=== PATIENT | female | born 1985 | race Caucasian/White ===

== ENCOUNTER 2024-10-02 21:19 | Observation (INO) | payer OTHER, SELFPAY ==
[2024-10-02 15:19] VITALS: BP 117/71
[2024-10-02 15:41] LABS: % Basophils 0.5 % (0-2); % Eosinophils 0.7 % (0-6); % Immature Granulocytes 1.8 % (0-0.5); % Lymphocytes 7.9 % (20.5-51.1); % Monocytes 5.3 % (1.7-9.3); % Neutrophils 83.8 % (42.2-75.2); Absolute Basophils 0.1 10^3/uL (0-0.2); Absolute Eosinophils 0.1 10^3/uL (0-0.7); Absolute Immature Granulocytes 0.3 10^3/uL (0-0.05); Absolute Lymphocytes 1.2 10^3/uL (1.2-3.4); Absolute Monocytes 0.8 10^3/uL (0.1-0.6); Absolute Neutrophils 12.8 10^3/uL (1.4-6.5); Hematocrit 38.1 % (37.0-47.0); Hemoglobin 13.1 g/dL (12.0-16.0); Mean Corp Hgb Conc. 34.4 g/dL (33.0-37.0); Mean Corpuscular Hgb 30.8 pg (27.0-31.0); Mean Corpuscular Volume 89.6 fL (81.0-99.0); Mean Platelet Volume 11.7 fL (7.4-10.4); Nucleated Red Blood Cells % 0 %; Platelet Count 271 10^3/uL (130-400); Red Blood Cell Count 4.25 10^6/uL (4.20-5.40); Red Cell Dist. Width 12.3 % (11.5-14.5); White Blood Cell Count 15.3 10^3/uL (4.8-10.8)
[2024-10-02 15:54] LABS: HCG, Serum Qualitative Screen Negative
[2024-10-02 15:57] LABS: ALT (SGPT) 14 U/L (0-35); AST (SGOT) 19 U/L (14-36); Albumin 3.9 g/dl (3.5-5.0); Alkaline Phosphatase 66 U/L (38-126); Blood Urea Nitrogen 11 mg/dl (7-17); Calcium 9.4 mg/dl (8.4-10.2); Carbon Dioxide 27 mmol/L (22-30); Chloride 105 mmol/L (98-107); Glucose 111 mg/dl (70-99); Lipase 131 U/L (23-300); Potassium 4.4 mmol/L (3.5-5.1); Sodium 140 mmol/L (135-145); Total Bilirubin 0.6 mg/dl (0.2-1.3); Total Protein 6.6 g/dl (6.3-8.2); eGFR > 60.00
[2024-10-02 16:34] VITALS: BMI 22.0
--- NOTE | 2024-10-02 16:57 | ED.GENMED ---
History of Present Illness
General
Chief Complaint: Abdominal Pain
Source: patient
Time Seen by Provider: 10/02/24 16:46
History of Present Illness
History of Present Illness:
39-year-old female presents to the emergency room complaining of abdominal pain. Patient began having abdominal pain at about 4:30 in the morning. It woke her from sleep. The pain seems to have persisted and perhaps even worsened. Pain is worse
with movement. Nothing seems to make it better. She did not take any taxx-mjy-[id number] medications for the pain. She denies having any previous abdominal surgeries. She states her last menstrual period was 2 years ago. She has taken medication
to suppress her menstrual period. Patient denies any associated nausea or vomiting.
Phy Exam
Physical Exam
Physical Exam:
General: Awake, Alert, Oriented X3. No acute distress.
Vitals: unremarkable
Head: Atraumatic
Eyes: Pupils equal, EOMI
Throat: Airway intact, no exudates
Neck: Trachea midline
Lungs: Clear and equal b/l
Heart: Regular rate, no murmurs
Abd: Soft, tender palpation right lower quadrant, No pulsatile mass
Back: No CVA tenderness to percussion
Neuro: Nonfocal
Skin: Warm, dry, no rash
Extremities: pulses equal b/l, no edema
Course
Orders/Labs/Results
Orders:
Orders
10/02/24 15:23
Test Result ONCE
10/02/24 15:27
Complete Blood Count/With Diff Urgent
Comprehensive Metabolic Panel Urgent
HCG, Serum Qualitative Screen Urgent
Lipase Urgent
10/02/24 16:56
CT Abd/pel W Iv And Oral Contr Urgent
Comment:
Reason For Exam: rlq abd pain
0.9% Sodium Chloride 1000 ml [Nss] 1,000 ml IV BOLUS
Iohexol [Omnipaque] See Protocol PO NOW STA
Ketorolac [Toradol] 15 mg IV NOW STA
10/02/24 20:37
Piperacillin/Tazo 4.5 Gram [Zosyn] 4.5 gram in 100 ml IV NOW
10/02/24 20:57
Admit/Transfer Patient As Directed
Co-Sign Provider:
Level of Care: Observation services
Assign to:: Medical/Surgical
Physician / Group: Arsh/General surgery
Diagnosis: Acute appendicitis
10/02/24 20:58
Code Status As Directed
Resuscitation Status: Full Code
PRN Pain Medication Management As Directed
May give lesser potent ordered pain med per pt: Yes
preference::
Protocol:: Medication orders for pain may be administered in a
manner that supports deferring to patient preference
when the pt is:
- Requesting an ordered lesser potent pain medication.
Least to most potent pain medications are defined
as: acetaminophen < NSAID < tramadol < opioids
(morphine, oxycodone, hydromorphone).
- Requesting a lesser dose of the same medication IF
ORDERED.
- Requesting a less intrusive route of administration
if both routes are prescribed by the provider (PO <
IV).
10/02/24 22:00
Flush (0.9% Sodium Chloride) [Flush (Nss)] See Dose Instructions IV PER PROTOCOL
10/02/24 22:39
0.9% Sodium Chloride 1000 ml [Nss] 1,000 ml IV 60 mls/hr
Morphine Sulfate 4 mg IV Q2HPRN PRN
Ondansetron Injectable [Zofran] 4 mg IV Q6HPRN PRN
10/02/24 22:39
Activity As Directed
Activity Level: Ambulate
Anti-embolism (NATASHA) Hose As Directed
Type: Thigh high
Intake/ Output As Directed
Frequency: Per unit guidelines
Pneumatic Compression Sleeves As Directed
Type: Thigh high
Vital Signs As Directed
Frequency: Per unit guidelines
DX Deep Vein Thrombosis Video Routine
10/03/24 03:00
Piperacillin/Tazo 3.375 Gram [Zosyn] 3.375 gram in 50 ml IV Q6H
10/03/24 Breakfast
NPO
Allow oral meds: No
Allow clear liquids: No
Abnormal Lab Results
10/02/24
15:27
WBC 15.3 H 10^3/uL
(4.8-10.8)
MPV 11.7 H fL
(7.4-10.4)
Abs Immat Gran (auto) 0.3 H 10^3/uL
(0-0.05)
Absolute Neuts (auto) 12.8 H 10^3/uL
(1.4-6.5)
Absolute Monos (auto) 0.8 H 10^3/uL
(0.1-0.6)
Immature Gran % 1.8 H %
(0-0.5)
Neutrophils % 83.8 H %
(42.2-75.2)
Lymphocytes % 7.9 L %
(20.5-51.1)
Glucose 111 H mg/dl
(70-99)
10/02/24 15:27
10/02/24 15:27
Vital Signs
Initial and Last Documented VS:
Initial Vital Signs
Temp Pulse Resp BP Pulse Ox
98.4 F 90 16 117/71 97
10/02/24 15:19 10/02/24 15:19 10/02/24 15:19 10/02/24 15:19 10/02/24 15:19
Last Documented Vital Signs
Temp Pulse Resp BP Pulse Ox
98.8 F 85 16 113/71 100
10/02/24 22:43 10/02/24 22:43 10/02/24 22:43 10/02/24 22:43 10/02/24 22:43
MDM/Problems Addressed
Differential Diagnosis Includes:
Appendicitis, ovarian cyst, hemorrhagic cyst, ectopic
MDM/Problems Addressed:
Patient presents with fairly sudden onset of right lower quad abdominal pain at 430. She is tender palpation of the right lower quadrant. White count is elevated 15.3. Rest of her labs are unremarkable. CT of the abdomen/pelvis performed which
shows the patient has acute appendicitis which appears to be uncomplicated. Case discussed with Dr. Bee who is on-call for general surgery. [facility] and plans for [facility] tomorrow morning. Patient will
remain NPO.
*Radiology
Radiology exam reviewed: radiology read reviewed
*Pulse Oximetry
Patient hypoxic: no
*Critical Care Note
Total Time (30-74mins, 75-104mins- exclusive of procedures): Not Applicable
ED Attending Note
-
Portions of this chart may have been created with voice recognition software.� Occasional wrong word or��sound alike� substitutions may have occurred due to the inherent limitations of voice recognition software.
Discharge Plan
Departure
Patient Disposition: Admit
Date of Disposition: 10/02/24
Time of Disposition: 20:39
Admit to: Med/Surg
Presentation/result/management discussed w/ accepting MD/DO: Hospitalist
Condition: Fair
Discharge Problem:
Abdominal pain, acute, Acute appendicitis
Interventions
Interventions:
*Risk Screen - Suicide Last Done: 10/02/24 15:19
*General Assessment Last Done: 10/02/24 15:19
*Neglect/Abuse Screening Last Done: 10/02/24 15:19
*ED- Fall Risk Assessment Last Done: 10/02/24 16:35
*ED COVID-19 Vaccine History Last Done: 10/02/24 22:28
*Nursing Disposition Last Done: 10/02/24 22:28
DP-Qhchrk-Fbinzonpyf Assessment Last Done: 10/02/24 16:36
Discharge Date and Time
Discharge Date/Time: 10/02/24 22:34
[2024-10-02] MEDS: TORADOL 15 MG IV (17:17)
[2024-10-02] MEDS: OMNIPAQUE 50 ML PO (17:17)
[2024-10-02] MEDS: NSS 1000 IV ×2 (17:17→23:15)
[2024-10-02] MEDS: ZOSYN 100 IV (21:20)
[2024-10-02 21:24] VITALS: BP 106/66
[2024-10-02 22:43] VITALS: BP 113/71
[2024-10-02 22:56] VITALS: BMI 22.5
[2024-10-02] MEDS: MORPHINE SULFATE 4 MG IV (23:16)
[2024-10-03] VITALS (12 sets, daily range): BP systolic 103–119; BP diastolic 56–90
--- NOTE | 2024-10-03 00:13 | HPS.HSE ---
Addendum entered and electronically signed by Teodoro Caban MD 10/03/24 10:17:
I saw and examined the patient independently.
The [employer]'s note was reviewed and I agree with the note, assessment and plan except where noted below.
Comment: This is a 39-year-old female who presents with 1 day of right lower quadrant pain. Exam, imaging, blood work all consistent with acute appendicitis.
Will plan for a laparoscopic appendectomy in the OR today.
N.p.o., IV fluids, IV antibiotics.
Risks/Benefits/Alternatives, expected postoperative course and possible complications (bleeding, infection, injury to surrounding structures, acute/chronic pain) discussed at length. Patient wishes to proceed with surgery. All questions answered.
Consent obtained.
I spent 60 minutes in total for the care of this patient today including direct patient care and counseling, reviewing labs, imaging, coordination of care, as well as documentation.
Original Note:
Family Physician
-
Family Physician: Rama Sevilla
Chief Complaint
-
Abdominal pain
History of Present Illness
Very pleasant 39 year old female who comes to ED with at least 12 hours worth of abdominal pain which awakened her about 0400. She had rare nausea and pain ebbs then becomes worse again especially with movement. She is most comfortable at a 40
degree angle. No treatment at home and has had minimal appetite.
Medical History
Past Medical History
Past Medical History: Reports None
Past Surgical History: Reports None
Social History
Tobacco: Non-smoker
Alcohol: None
Drug: None
Personal:
Living: With Family
Employment: Employed (early head start teacher)
Family History
Family History: Not pertinent
Allergies / Home Medications
Allergies reflects when Allergies were last updated in [facility].
Home Medications with original date entered in [facility]
Allergy/Medication List:
Allergies
Allergy/AdvReac Type Severity Reaction Status Date / Time
No Known Allergies Allergy Unverified 10/02/24 15:23
'medication to stop menstruation'
Review of Systems
-
History Source: Patient and Transfer Record
A 12 point ROS was completed and negative except as noted: Yes
Constitutional: Reports No Symptoms
EENT: Reports No Symptoms
Respiratory: Reports No Symptoms
Cardiac: Reports No Symptoms
Abdomen/GI: Reports Abdominal Pain
: Reports No Symptoms
Musculoskeletal: Reports No Symptoms
Skin: Reports No Symptoms
Neurological: Reports No Symptoms
Endocrine: Reports No Symptoms
Hematologic/Lymphatic: Reports No Symptoms
Psych: Reports No Symptoms
Physical Exam
Vital Signs
Vital Signs
Temp Pulse Resp BP Pulse Ox
98.8 F 85 16 113/71 100
10/02/24 22:43 10/02/24 22:43 10/02/24 22:43 10/02/24 22:43 10/02/24 22:43
Physical Exam
General: Well Developed, Well Nourished, No Apparent Distress and Comfortable
HEENT: NormoCephalic, Moist mucous membranes and Atraumatic
Respiratory: Clear and Non Labored Respirations
Cardiac: S1/S2 and Regular Rhythm
Breast: Deferred by me
GI: Soft, Normal Bowel Sounds and Tender (RLQ)
Rectal: Deferred by Provider
Genito-urinary: Clear Urine
Musculoskeletal: No Clubbing, No Cyanosis, No Edema and Normal Gait & Station
Skin: Warm and Dry
Neuro: Awake, Alert, AO x 3, No Motor Deficits and Nonfocal/grossly intact
Psych: Calm
Laboratory Results
-
10/02/24 15:27
10/02/24 15:27
Laboratory Results
Total Bilirubin 0.6 mg/dl (0.2-1.3) 10/02/24 15:27
AST 19 U/L (14-36) 10/02/24 15:27
ALT 14 U/L (0-35) 10/02/24 15:27
Alkaline Phosphatase 66 U/L (38-126) 10/02/24 15:27
Lipase 131 U/L (23-300) 10/02/24 15:27
Data Reviewed
-
CT Scan: Report Reviewed by me
Lab Data: Labs Reviewed by me
Impression/Plan
-
IMPRESSION: acute appendicitis
PLAN: Very pleasant 39 year old female who comes to ED with at least 12 hours worth of abdominal pain which awakened her about 0400. She had rare nausea and pain ebbs then becomes worse again especially with movement. She is most comfortable at a 40
degree angle. No treatment at home and has had minimal appetite.
*Acute appendicitis: NS IVF, Zosyn IV q 6H, Morphine IV, Zofran IV, NPO
*DVT prophylaxis: Teds, SCDS oob ad corky.
*Disposition: General surgery service.
--- NOTE | 2024-10-03 00:57 | PTCARENOTE ---
Pt arrived 5 from ED. Pt was able to ambulate from stretcher to bed. Pt oriented X3. complains of 7/10 pain (see MAR). Head to toe assessment complete. oriented to room and call dickinson. bed locked and in lowest position.
[2024-10-03] MEDS: ZOSYN 50 IV ×3 (02:06→12:54)
[2024-10-03] MEDS: MORPHINE SULFATE 4 MG IV (05:46)
--- NOTE | 2024-10-03 09:23 | VATNOTE ---
IV access placed on 10/02 was not pre-hospital line. Was placed by Boy RN in the ED.
--- NOTE | 2024-10-03 10:17 | W.SUR.PREOP ---
Pre-Operative Surgical Note
-
I have examined this patient prior to the performance of the scheduled procedure.
The patient's condition is unchanged from the time of the current History and
Physical and the patient is able to undergo the scheduled procedure.
--- NOTE | 2024-10-03 11:46 | W.IMMPOSTOP ---
Surgical Immed Post Op Note
-
Primary Surgeon: Teodoro Caban MD
Assisting Surgeon: None
Pre-op Diagnosis: Acute appendicitis
Post-op Diagnosis: Same
Procedure Performed: Laparoscopic appendectomy
Anesthesia Type: General
Specimen / Cultures: Appendix
Estimated Blood Loss: 3 cc
Complications: None
Operative Findings: X3 5 mm port appendectomy. Suppurative and inflamed but nonperforated appendicitis. Retrocecal. After peeling of the proximal part of the appendix off of the base of the cecum the true base was identified and ligated with 0
PDS Endoloop. This was then reinforced with a 2-0 Vicryl pursestring suture.
--- NOTE | 2024-10-03 11:48 | OR.RPT ---
Operative Report
Operative Report
Patient Name: Chana Pack
: 1985
Date of Operation: 10/03/2024
Preoperative Diagnosis: Acute Appendicitis
Postoperative Diagnosis: Same
Procedure(s):
Laparoscopic Appendectomy
Surgeon(s):
Dr. Caban
Med Surg Nurse(s):
ROSAURA Aguilar
Anesthesia: General
Estimated Blood Loss: 3 cc
Urine Output: None
Drains/Lines/Implants: None
Specimens:
1. Appendix
HPI/Surgical Indications:
This is a 39-year-old female who presents with a 1 day history of abdominal pain. Exam, labs and imaging are consistent with acute appendicitis. Risks/Benefits/Alternatives were discussed at length, and the patient agreed to proceed with surgery.
Operative Findings: X3 5 mm port appendectomy. Suppurative and inflamed but nonperforated appendicitis. Retrocecal. After peeling of the proximal part of the appendix off of the base of the cecum the true base was identified and ligated with 0
PDS Endoloop. This was then reinforced with a 2-0 Vicryl pursestring suture.
Procedure Description:
The patient was placed in the supine position, with the left arm tucked, and general anesthesia was induced. The abdomen was prepared and draped in a sterile fashion so as to expose the entire abdomen. A surgical time out was taken. Abdominal access
was obtained with a 5 mm infra-umbilical Sue Entry. After confirming no injury on entrance, two additional 5mm ports were placed in the suprapubic area just off midline and in the left lower quadrant. The patient was placed in Trendelenberg with
the right slightly up . The appendix was identified in a retrocecal location with multiple adhesions to the sidewall and base of the cecum which were carefully lysed with a combination of blunt, bipolar and electrocautery hook dissection. The
appendix was suppurative and inflamed but not perforated. Using a laparoscopic bipolar energy device, the meso appendix was divided. The base of the appendix appeared uninvolved and was ligated/divided using a single 0 PDS Endoloop. This stump was
then reinforced with a 2-0 Vicryl pursestring suture. The appendix was placed in a specimen retrieval bag. Hemostasis was confirmed and the ports were removed under visualization. The specimen was passed off the field. The umbilical port was closed
with a [id number] 0-PDS and the skin for all three ports was closed with interrupted monocryls and covered with dermabond. The patient was awoken from anesthesia in good condition and transported to the recovery area.
I was the attending physician and performed the procedure with assistance from the AD SETTER above. I was present for all portions of the case excluding skin closure.
Teodoro Caban MD
--- NOTE | 2024-10-03 12:35 | CM ---
Addendum entered by Collette Acevedo 10/03/24 13:49:
CM updated patient of the change in status. Patient plan for transportation home when medically appropriate.
Original Note:
Patient out of room to surgery. Patient at bedside. Patient to be changed from OBS to INP per [facility] nursing. Patient lives in a 2 story home with no DME prior to surgery and she is independent of ADL's prior to admission. Patient PCP is
Roel and she uses the [facility] in [place]. CM will continue to follow for discharge planning needs.
Plan; home with no needs vs home with VN pending medical treatment plan
--- NOTE | 2024-10-03 13:05 | PTCARENOTE ---
pt returned from PACU awake alert, clear on RA/ 3 lap sites on abd well approximated with glue. pt requesting pain medications, does not want morphine wants to try crackers prior to taking oxy. ice applied.
[2024-10-03] MEDS: ROXICODONE 5 MG PO (13:15)
--- NOTE | 2024-10-03 13:20 | W.DS.TRANS ---
DC Summary - [facility]
-
Discharge Instructions:
Discharge Diagnosis/Procedures Acute appendicitis status post laparoscopic
appendectomy
Diet No restrictions,As tolerated
Activity No strenuous activity
Additional Activity Do not lift over 15lbs for 2-3 weeks
Bathing Restrictions OK to Shower
Instructions:
Stand-Alone Forms:
Changes to Home Medications: No
Discharge Medications:
DC Medications w/original date entered in [employer]
acetaminophen 325 mg tablet 650 mg (2 x 325 mg) PO Q4HPRN PRN mild pain #1 tab 10/03/24
amoxicillin 875 mg-potassium clavulanate 125 mg tablet 1 tab PO Q12 antibiotic #8 tabs 10/03/24
gabapentin 300 mg capsule 300 mg PO TID Neurological Condition 10/03/24
ibuprofen 200 mg tablet 400 - 600 mg (2 - 3 x 200 mg) PO Q6HPRN PRN moderate pain #1 tab 10/03/24
norethindrone acetate 5 mg tablet 5 mg PO DAILY Hormonal Agent 10/03/24
oxycodone 5 mg tablet 5 mg PO Q4HPRN PRN breakthrough/severe pain #5 tabs 10/03/24
propranolol 60 mg tablet 60 mg 1XD 10/03/24
Home Medication Changes
Pending Results: No
== END 2024-10-03 19:06 | disposition home or self-care (01) ==
LOC: 2 SOUTH 21:19
PROVIDERS: ADMITTING PHYSICIAN Surgery; EMERGENCY PHYSICIAN Emergency Medicine; FAMILY PHYSICIAN Nurse Practitioner Adult Health
DX: K35.80 Unspecified acute appendicitis (principal); R10.9 Unspecified abdominal pain
CPT/HCPCS: 44970; 88304; 74177; 80053; 83690; 84703; 85025; 96365; 96375; 99285; C1776; G0378; Q9967